=== PATIENT | female | born 1945 | race Caucasian/White ===

== ENCOUNTER 2019-06-13 17:36 | Observation (INO) | payer MEDICARE ==
[~2019-06-13] VITALS: Ht 172.7 cm; Wt 79.4 kg
[~2019-06-13 17:36] MED LIST: DOXYCYCLINE HY100 M2 IV; HYDROCODONE PO; VALSARTAN PO; ZOLPIDEM TARTRA10 MG PO
[2019-06-13] MEDS ORDERED: ENALAPRILAT IV INJ 1.25 MG/ML VIAL IV STA (17:44)
[2019-06-13 18:01] LABS: BASOPHILS % 0.2 % (0.0-1.0); EOSINOPHILS # (AUTO) 0.1 (0.0-0.4); EOSINOPHILS % 1.5 % (0.0-6.0); HEMATOCRIT 42.2 % (34.2-44.1); HEMOGLOBIN 14.6 g/dL (12.0-16.0); LYMPHOCYTES # (AUTO) 2.8 (1.0-3.2); LYMPHOCYTES % 31.8 % (18.0-39.1); MEAN CORPUSCULAR HEMOGLOBIN 33.3 pg (28-32); MEAN CORPUSCULAR HGB CONC 34.6 g/dL (31-35); MEAN CORPUSCULAR VOLUME 96.1 fL (81-99); MONOCYTES # (AUTO) 0.7 (0.2-0.8); MONOCYTES % 8.1 % (4.4-11.3); NEUTROPHILS % 58.2 % (38.7-80.0); PLATELET COUNT 246 x10e3/uL (140-360); RED BLOOD COUNT 4.39 x10e6/uL (3.6-5.1); RED CELL DISTRIBUTION WIDTH 11.9 % (11.7-14.4)
[2019-06-13 18:12] LABS: ALBUMIN 3.9 g/dL (3.5-5.0); ALBUMIN/GLOBULIN RATIO 1.1 (0.8-2.0); ANION GAP 13.8 mmol/L (8-16); CALCIUM 10.1 mg/dL (8.4-10.2); CREATININE, SERUM 0.96 mg/dL (0.57-1.11); POTASSIUM 3.8 mmol/L (3.5-5.1)
--- NOTE | 2019-06-13 18:39 | Diagnostic Imaging Report ---
EXAM: CHEST 2 VIEWS DATE: 06/13/2019 5:44 PM INDICATION: ^chest pain, SOB ^[id number] ^1800 COMPARISON: No previous chest imaging is available on PACS for comparison. FINDINGS: Lines and tubes: None Heart size normal. No focal pulmonary opacity, pleural effusion or pneumothorax. There is minimal linear atelectasis at the left lung base. Upper abdomen unremarkable. No acute bony abnormality. IMPRESSION: No evidence for acute disease. Signed by: Dr. Edmund Rowan M.D. on 06/13/2019 6:36 PM
[2019-06-13] MEDS ORDERED: LORAZEPAM INJ 2 MG/ML VIAL IV ONE (19:00)
[2019-06-13] MEDS ORDERED: ONDANSETRON HCL INJ 2MG/ML 2ML 2 MG/ML VIAL IV PRN (19:00)
[2019-06-13] MEDS ORDERED: CLONIDINE HCL 0.2 MG/24 HR 1 EA PATCH TOP ONE (19:00)
[2019-06-13] MEDS ORDERED: SODIUM CHLORIDE FLUSH 10 ML SYR INJ PRN (19:00)
[2019-06-13] MEDS ORDERED: ENALAPRILAT IV INJ 1.25 MG/ML VIAL IV PRN (19:00)
--- OUTSIDE RECORDS SUMMARY | 2019-06-13 19:14 | XMS REPORT ---
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 Allergies, Adverse Reactions, Alerts This patient has no known allergies or adverse reactions. Medications This patient has no known medications. Results Test Description Test Time Test Comments Text Results Atomic Results Result Comments CHEST 2 VIEWS 2019-06-13 18:26:00 [facility] [address] [address] Patient Name: LANCE FLANAGAN MR #: [id number] : 1945 Age/Sex: 73/F Req #: [id number] Adm Physician: Ordered by: SHAWNA GAYTAN MD Report #: [id number] Location: ER Room/Bed: Procedure: [id number] DX/CHEST 2 VIEWS Exam Date: 06/13/19 Exam Time: 1800 REPORT STATUS: Signed EXAM: CHEST 2 VIEWS DATE: 06/13/2019 5:44 PM INDICATION: chest pain, SOB [id number] COMPARISON: No previous chest imaging is available on PACS for comparison. FINDINGS: Lines and tubes: None Heart size normal. No focal pulmonary opacity, pleural effusion or pneumothorax. There is minimal linear atelectasis at the left lung base. Upper abdomen unremarkable. No acute bony abnormality. IMPRESSION: No evidence for acute disease. Signed by: Dr. Mir Holder M.D. on 06/13/2019 6:36 PM Dictated By: MIR HOLDER MD 35 Transcribed By: CATHY on 06/13/191835 COPY TO: SHAWNA GAYTAN MD
--- NOTE | 2019-06-14 05:03 | NUR ---
REPORT GIVEN TO YVES BOBBY
[2019-06-14] MEDS ORDERED: CEPHALEXIN500 MG PO (07:57)
[2019-06-14 07:58] VITALS: BP 178/80
[2019-06-14 08:06] VITALS: BP 178/80
[2019-06-14 08:11] VITALS: BP 178/80
[2019-06-14] MEDS ORDERED: LOSARTAN POTAS100 MG PO (08:22)
[2019-06-14] MEDS ORDERED: FISH OIL 1,0001 EAC2 PO (08:27)
[2019-06-14] MEDS ORDERED: CLONAZEPAM0.5 MG PO (08:27)
[2019-06-14] MEDS ORDERED: CALCIUM500 MG PO (08:27)
[2019-06-14] MEDS ORDERED: CYCLOBENZAPRINE (08:27)
--- NOTE | 2019-06-14 10:30 | NUR ---
Dr. Willis made rounds. said patient could go home. left prescription for losartan and amlodipine on the chart
[2019-06-14] MEDS ORDERED: AMLODIPINE BESYL5 MG PO (10:41)
[2019-06-14] MEDS ORDERED: CLONAZEPAM 0.5 MG TAB PO PRN (10:45)
[2019-06-15] MEDS ORDERED: LOSARTAN POTASSIUM 100 MG TAB PO SCH (09:00)
== END 2019-06-14 12:02 | disposition home or self-care (01) ==
LOC: ER 17:36 → ERHOLD 18:54 → INTOOBSV 18:54 → MED/SURG2 06-14 07:36
DX: I10 Essential (primary) hypertension (principal); F41.9 Anxiety disorder, unspecified; J06.9 Acute upper respiratory infection, unspecified; Z82.49 Family history of ischemic heart disease and other diseases of the circulatory system; Z82.3 Family history of stroke; Z88.0 Allergy status to penicillin
CPT/HCPCS: 36415; 71046; 80053; 83880; 84484; 85025; 93005; 99284; G0378 ×2; J2060

== ENCOUNTER → 2023-01-11 | Outpatient (CLI) | payer MEDICARE ==
[~2023-01-11] MED LIST changes: +AMLODIPINE BESYL5 MG PO; +CALCIUM500 MG PO; +CEPHALEXIN500 MG PO; +CLONAZEPAM0.5 MG PO; +CYCLOBENZAPRINE; +FISH OIL 1,0001 EAC2 PO; +LOSARTAN POTAS100 MG PO
== END ==
LOC: US 08:17
PROVIDERS: ATTEND Family Medicine
DX: R10.10 Upper abdominal pain, unspecified (principal)
CPT/HCPCS: 76700

== ENCOUNTER → 2024-05-17 | Outpatient (REF) | payer MEDICARE | LOC: MRI 12:19 | PROVIDERS: ATTEND Family Medicine | DX: M25.511 Pain in right shoulder (principal); M75.101 Unspecified rotator cuff tear or rupture of right shoulder, not specified as traumatic ==